=== PATIENT | male | born 1990 | race Caucasian/White ===

== ENCOUNTER 2016-08-30 23:41 | Emergency (ER) | payer OTHER, BC ==
[2016-08-30] MEDS ORDERED: Bacitracin Oint 1 GM U/D Packet TOP ONE (23:45)
[2016-08-30] MEDS ORDERED: Diphtheria,Pertussis(Acell),Tetanus Vaccine 0.5 ML Syringe IM ONE (23:46)
[2016-08-30] MEDS ORDERED: Lidocaine 1% 20 ML MDV INJECT ONE (23:47)
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
[2016-08-31 00:50] VITALS: BP 131/84
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
== END 2016-08-31 01:10 | disposition home or self-care (01) ==
LOC: MW.ED 23:41
DX: S51.812A Laceration without foreign body of left forearm, initial encounter (principal); S29.012A Strain of muscle and tendon of back wall of thorax, initial encounter; Z88.0 Allergy status to penicillin; Z88.1 Allergy status to other antibiotic agents; Z23 Encounter for immunization; V89.2XXA Person injured in unspecified motor-vehicle accident, traffic, initial encounter; Y92.410 Unspecified street and highway as the place of occurrence of the external cause; Y99.0 Civilian activity done for income or pay
CPT/HCPCS: 12001; 71020; 71020-26; 72070; 72070-26; 73090-26-LT; 73090-LT; 90471; 90715; 99283; 99284-25